=== PATIENT | female | born 1980 | race Caucasian/White ===

== ENCOUNTER → 2016-10-19 | Outpatient (CLI) | payer OTHER ==
--- NOTE | 2016-10-20 08:08 | RADIOLOGY REPORT PS360 ---
MRI-T-SPINE W/O Ordering Physician: Fritz Corcoran MD Patient Age: 36 years: Female HISTORY: LUMBAR AND THORACIC NEURALGIAright-sided mid back pain 2 months. Pain is at borderline. TECHNIQUE: Sagittal T1, T2, STIR along with limited axial T1 and T2 imaging thoracic spine. FINDINGS Vertebral bodies are intact. No compression fractures nor significant vertebral lesions. Slight increased anterior T2 likely reflects benign hemangioma.- Bright on T1 weighted images On close inspection: T 5/6: small area early endplate hypertrophy, minor spurring at left paracentral region very slightly indents thecal sac towards lateral recess. ( Sagittal image 8. Axial image 8). This feature May just impinge upon the left corner of the thoracic cord. T6/7. Barely appreciable likely early endplate hypertrophy focus just left of midline sagittal image 8. The neural foramen widely patent at all levels with no significant encroachment. Adequate volume underlying thoracic spinal canal. Thoracic cord appears normal in signal. Lower T-spine from T7 through T12 and L1 unremarkable. IMPRESSION: T-spine. No prominent findings. No disc herniation. Disc well hydrated and well maintained Only note scant tiny early endplate spurring to the left at T5/6 which slightly abuts the left aspect of the thoracic cord.. Patient's pain is on right. - No features are seen to the right
--- NOTE | 2016-10-20 08:28 | RADIOLOGY REPORT PS360 ---
MRI-L-SPINE W/O, MRI-3D RENDERING/MYELOGRAM Ordering Physician: Fritz Corcoran MD Patient Age: 36 years: Female HISTORY: LUMBAR AND THORACIC NEURALGIA Low back pain for 10 years. Left-sided sciatica but radiates down both legs at times TECHNIQUE: FINDINGS L5/S1. Mild Eccentric disc bulge more evident the right paracentral region. Just abuts thecal sac and may impinge upon right S1 nerve root Slight loss of disc hydration at L5/S1 disc but it height is maintained... Minimal high signal at posterior disc margin unimpressive but conceivably could reflect a minor annular fissure. Mild facet arthropathy with hypertrophy. . L4/5.: Disc remains hydrated and disc height intact. Asymmetric rather focal disc bulge at left foramen vs mild disc protrusion. This yields Mild/moderate encroachment upon the left lateral recess and left foramen ( sagittal image 10, 11). L3/4 disc hydrated and disc height intact. Only trace foraminal disc bulge most evident on right. Mild right foraminal encroachment from such. L2/3 disc intact unremarkable. L1/2 disc intact unremarkable neural foramen widely patent at these levels T12/L1, T11/12, T10-11 disc intact unremarkable. 3-D MR myelogram image set included generous caliber thecal sac. With satisfactory appearance to the nerve root sleeve bilateral IMPRESSION: No prominent findings.. No disc herniation. No spinal stenosis. Minimal early bulging disc are evident. Modest observations currently. L3/4. Mild foraminal disc bulge to right. Mild right foraminal encroachment L4/5.: Left foraminal disc bulge. Slightly focal bulge at left foramen-could reflect very early minor disc protrusion.. In either case yields mild/Moderate Left foraminal encroachment currently L5/S1.: Eccentric rightward mild disc bulge may just impinge upon the Right S1 nerve root within thecal sac Also at this level note Focal high signal along posterior disc margin could reflect possible small annular fissure. Nonspecific
== END ==
LOC: RAD 15:02
DX: M54.16 Radiculopathy, lumbar region (principal); M79.2 Neuralgia and neuritis, unspecified